=== PATIENT | male | born 1970 | race Caucasian/White ===

== ENCOUNTER → 2024-07-25 06:17 | Day surgery (SDC) | payer OTHER, SELFPAY | LOC: GI 06:17 | PROVIDERS: ATTENDING PHYSICIAN Internal Medicine Gastroenterology | DX: Z12.11 Encounter for screening for malignant neoplasm of colon (principal); Z80.0 Family history of malignant neoplasm of digestive organs; K64.8 Other hemorrhoids; K57.30 Diverticulosis of large intestine without perforation or abscess without bleeding | CPT/HCPCS: G0105 ==

== ENCOUNTER → 2024-09-29 12:34 | Outpatient (REF) | payer OTHER, SELFPAY | LOC: HWRCS 12:34 | PROVIDERS: ATTENDING PHYSICIAN Nuclear Medicine Nuclear Cardiology; FAMILY PHYSICIAN Family Medicine | DX: I10 Essential (primary) hypertension (principal); I51.7 Cardiomegaly | CPT/HCPCS: 93306 ==

== ENCOUNTER → 2024-10-25 15:48 | Outpatient (REF) | payer OTHER, SELFPAY | LOC: PAVMRI 15:48 | PROVIDERS: ATTENDING PHYSICIAN Orthopaedic Surgery Sports Medicine; FAMILY PHYSICIAN Family Medicine | DX: M23.306 Other meniscus derangements, unspecified meniscus, right knee (principal) | CPT/HCPCS: 73721 ==

== ENCOUNTER → 2025-01-05 12:14 | Outpatient (REF) | payer OTHER, SELFPAY ==
[2025-01-05 12:39] VITALS: BP 170/91; BP_SYST 62
== END ==
LOC: RADI 12:14
PROVIDERS: ATTENDING PHYSICIAN Podiatrist Foot & Ankle Surgery; FAMILY PHYSICIAN Family Medicine
DX: M77.51 Other enthesopathy of right foot and ankle (principal); M25.571 Pain in right ankle and joints of right foot
CPT/HCPCS: 20606; 76882